=== PATIENT | female | born 1960 | race Caucasian/White ===

== ENCOUNTER 2016-11-28 09:20 | Inpatient (IN) | payer OTHER, MEDICARE ==
[~2016-11-28] VITALS: Ht 152.4 cm; Wt 81.4 kg
[2016-11-28] VITALS (20 sets, daily range): BP systolic 88–131; BP diastolic 44–75; PULSE 73–104; RESP 16–26; Ht 152.4 cm; Wt 81.4 kg
[~2016-11-28 09:20] MED LIST: EPHEDrine SULFATE 50 MG/5 ML SYG ONE
[2016-11-28] MEDS ORDERED: ROSU5TAB5 PO (10:02)
[2016-11-28] MEDS ORDERED: METF-405 PO (10:02)
[2016-11-28] MEDS ORDERED: LOSA50TA6 PO (10:03)
[2016-11-28] MEDS ORDERED: DESV50TA4 PO (10:03)
[2016-11-28] MEDS ORDERED: FELO5TAB35 PO (10:03)
[2016-11-28] MEDS ORDERED: LACTATED RINGER'S 1,000 ML IV* SCH (10:30)
[2016-11-28] MEDS ORDERED: CEFAZOLIN 2 GM/50 ML (PMX) 50 ML IVPB ONE (10:30)
[2016-11-28] MEDS ORDERED: THROMBIN 5000 UNIT VIAL ONE (11:38)
[2016-11-28] MEDS ORDERED: CA CHLORIDE 10% 10 ML SYRINGE ONE (11:38)
[2016-11-28] MEDS ORDERED: SURGIFOAM POWDER 1 GM KIT ONE (11:38)
[2016-11-28] MEDS ORDERED: POLYMYXIN/BACITRACIN 1L IRRIG ONE (11:38)
[2016-11-28] MEDS ORDERED: BUPIVACAINE 0.25%/EPI (SDV) 30 ML INJ ONE (11:38)
--- NOTE | 2016-11-28 11:48 | HPN ---
Date/Time of Note Date/Time of Note DATE: 11/28/16 TIME: 11:47 Interval H&P Admission Note Pt. seen H&P reviewed: No system changes SHYANNE CASETLLANOS PA-C Nov 28, 2016 11:48
[2016-11-28] MEDS ORDERED: AL HYDROX/MG HYDROX/SIMETH 30 ML CUP PO PRN (12:00)
[2016-11-28] MEDS ORDERED: HYDROmorphONE 1 MG/ML SYG IV PRN (12:00)
[2016-11-28] MEDS ORDERED: DIPHENHYDRAMINE 50 MG INJ IV PRN ×2 (12:00→13:30)
[2016-11-28] MEDS ORDERED: ZOLPIDEM 5 MG TAB PO PRN (12:00)
[2016-11-28] MEDS ORDERED: ACETAMINOPHEN 325 MG TAB PO PRN (12:00)
[2016-11-28] MEDS ORDERED: CARISOPRODOL 350 MG TAB PO PRN (12:00)
[2016-11-28] MEDS ORDERED: ONDANSETRON 4 MG INJ IV PRN ×2 (12:00→13:30)
[2016-11-28] MEDS: CEFAZOLIN 1 GM/50 ML (PMX) 50 ML IVPB SCH ×2 (12:00→19:58)
[2016-11-28] MEDS ORDERED: NALOXONE (0.4 MG/ML) INJ IV PRN (12:00)
[2016-11-28] MEDS ORDERED: BISACODYL 10 MG SUPP PR PRN (12:00)
[2016-11-28] MEDS ORDERED: CEPASTAT LOZENGE MT PRN (12:00)
[2016-11-28] MEDS ORDERED: HYDROmorphONE 0.2 MG/ML PCA IV SCH (12:00)
[2016-11-28] MEDS ORDERED: FENTAnyl 50 MCG/ML VIAL ONE ×2 (12:15→13:04)
[2016-11-28] MEDS ORDERED: ROCURONIUM 50 MG INJ ONE (12:15)
[2016-11-28] MEDS ORDERED: SUCCINYLCHOLINE CHLORIDE 100 MG/5 ML SYG IV ONE (12:15)
[2016-11-28] MEDS ORDERED: MIDAZOLAM 1 MG/ML 2 ML INJ ONE (12:15)
[2016-11-28] MEDS ORDERED: PROPOFOL 20 ML ONE ×2 (12:15→13:00)
[2016-11-28] MEDS ORDERED: LIDOCAINE 2% (SDV) 5 ML INJ ONE (12:15)
[2016-11-28] MEDS ORDERED: CEFAZOLIN 1 GM INJ ONE (12:36)
[2016-11-28] MEDS ORDERED: ONDANSETRON 4 MG INJ ONE (12:37)
[2016-11-28] MEDS ORDERED: FAMOTIDINE 20 MG INJ ONE (12:37)
[2016-11-28] MEDS ORDERED: DEXAMETHASONE 4 MG/ML 1 ML INJ ONE (12:37)
[2016-11-28] MEDS ORDERED: NEOSTIGMINE 3 MG/3 ML SYRINGE ONE (13:05)
[2016-11-28] MEDS ORDERED: GLYCOPYRROLATE 1 MG INJ ONE (13:05)
[2016-11-28] MEDS ORDERED: HYDROmorphONE 2 MG/ML SYG ONE (13:05)
[2016-11-28] MEDS ORDERED: FENTAnyl 50 MCG/ML VIAL IV PRN (13:30)
[2016-11-28] MEDS ORDERED: PROCHLORPERAZINE 10 MG INJ IV PRN (13:30)
[2016-11-28] MEDS ORDERED: HYDROmorphONE (0.2 MG/ML) 10ML SYG IV PRN (13:30)
[2016-11-28] MEDS ORDERED: MEPERIDINE 25 MG INJ IV PRN (13:30)
--- NOTE | 2016-11-28 13:48 | RADRPT ---
PROCEDURE: XR Lumbar Spine one view. CLINICAL INDICATION: Low back pain. Intraoperative. TECHNIQUE: Prone portable cross-table lateral. COMPARISON: Prior study done earlier the same day. FINDINGS: For the purposes of this report, the last apparent true disc level is considered to be L5-S1. Based on this, the posterior surgical instrument is present overlying the L5-S1 level. IMPRESSION: 1. Intraoperative imaging as described above. RPTAT: QQ .Jarrett Carcamo MD, MD Date Time Electronically viewed and signed by .Jarrett Carcamo MD, on 11/28/2016 13:48 .R/
--- NOTE | 2016-11-28 13:48 | RADRPT ---
PROCEDURE: XR Lumbar Spine one view. CLINICAL INDICATION: Low back pain. Intraoperative. TECHNIQUE: Prone portable cross-table lateral. COMPARISON: No prior studies are available for comparison. FINDINGS: For the purposes of this report, the last apparent true disc level is considered to be L5-S1. Based on this, the posterior needle markers are present at upper L5 and lower S1 levels. IMPRESSION: 1. Intraoperative imaging as described above. RPTAT: QQ .Jarrett Carcamo MD, MD Date Time Electronically viewed and signed by .Jarrett Carcamo MD, on 11/28/2016 13:48 .R/
--- NOTE | 2016-11-28 13:54 | OPPN ---
Date/Time of Note Date/Time of Note DATE: 11/28/16 TIME: 13:53 Operative Report Free Text/Dictation s/p right L5-S1 microdiscectomy Preoperative Diagnosis right L5-S1 HNP Postoperative Diagnosis right L5-S1 HNP Operation/Procedure Performed right L5-S1 microdiscectomy Provider: JAIRO HOLT MD acute care nursing assistant: SHYANNE CASTELLANOS PA-C Anesthesia: general Estimated blood loss: 10 - 50 ml's Specimens L5-S1 disc Grafts/Implants none Complications: None SHYANNE CASTELLANOS PA-C Nov 28, 2016 13:54
[2016-11-28] MEDS: 1/2 NS + KCL 20 MEQ 1,000 ML IV SCH (15:45)
[2016-11-28] MEDS: LOSARTAN 50 MG TAB PO SCH (17:30)
[2016-11-28] MEDS: [UNRECOGNIZED DRUG - REMARK] XX SCH (18:00)
[2016-11-28] MEDS: FELODIPINE (ER) 5 MG TAB PO SCH (18:17)
[2016-11-28] MEDS: metFORMIN 500 MG TAB PO SCH (18:20)
[2016-11-28] MEDS: INSULIN ASPART [NOVOLOG] 3 ML PEN SC SCH (18:30)
[2016-11-28] MEDS ORDERED: ATORVASTATIN 20 MG TAB PO SCH (21:00)
[2016-11-28] MEDS: DOCUSATE SODIUM 100 MG CAP PO SCH (21:03)
[2016-11-29] MEDS: 1/2 NS + KCL 20 MEQ 1,000 ML IV SCH ×3 (01:46→18:00)
[2016-11-29] MEDS: [UNRECOGNIZED DRUG - REMARK] XX SCH ×2 (01:50→10:00)
[2016-11-29] MEDS: CEFAZOLIN 1 GM/50 ML (PMX) 50 ML IVPB SCH (03:58)
[2016-11-29] MEDS ORDERED: GLUCOSE GEL 15 GRAM TUBE PO PRN ×2 (07:00)
[2016-11-29] MEDS ORDERED: GLUCAGON 1 MG INJ IM PRN (07:00)
[2016-11-29] MEDS ORDERED: DEXTROSE 50% 50 ML SYRINGE IV PRN ×2 (07:00)
[2016-11-29] MEDS ORDERED: GLUCOSE GEL 15 GRAM TUBE BUCCAL PRN (07:00)
[2016-11-29] MEDS: INSULIN ASPART [NOVOLOG] 3 ML PEN SC SCH ×3 (07:20→17:25)
[2016-11-29] MEDS: metFORMIN 500 MG TAB PO SCH ×2 (08:29→17:49)
[2016-11-29] MEDS: DOCUSATE SODIUM 100 MG CAP PO SCH (08:30)
[2016-11-29] MEDS: LOSARTAN 50 MG TAB PO SCH (08:31)
[2016-11-29] MEDS: FELODIPINE (ER) 5 MG TAB PO SCH (08:31)
[2016-11-29 08:39] VITALS: BP 123/68; RESP 20
--- NOTE | 2016-11-29 08:42 | CONS ---
Date/Time of Note Date/Time of Note DATE: 11/29/16 TIME: 08:40 Assessment/Plan Assessment/Plan Additional Assessment/Plan 1. Stable post op lumbar laminectomy. 2. Hx DM, sugars are acceptable 3. This am labs are pending Consultation Date/Type/Reason Admit Date/Time Nov 28, 2016 at 09:20 Initial Consult Date Detailed Summary Respiratory: No cough, No shortness of breath Cardiovascular: No chest pain Gastrointestinal: no complaints Genitourinary: no complaints Musculoskeletal: back pain (mild) Exam/Review of Systems Vital Signs Vitals Vital Signs Date Time Temp Pulse Resp B/P Pulse Ox O2 Delivery O2 Flow Rate FiO2 11/29/16 06:07 20 11/28/16 21:29 Nasal Cannula 2.0 11/28/16 19:02 98.0 101 118/74 97 Intake and Output 11/28/16 11/28/16 11/29/16 15:00 23:00 07:00 Intake Total 1600 ml 165 ml 1635 ml Output Total 10 ml 350 ml Balance 1590 ml -185 ml 1635 ml Exam Neck: No jvd Respiratory: clear to auscultation Cardiovascular: regular rate and rhythm Gastrointestinal: soft Extremities: No edema (and no calf tend) Results Results 24 hrs Laboratory Tests Test 11/28/16 10:26 11/28/16 14:10 11/28/16 18:10 11/29/16 08:10 Bedside Glucose 144 164 189 142 Medications Medications Current Medications Potassium Chloride/Sodium Chloride (1/2 NS + KCl 20 Meq) 1,000 ml @ 100 mls/hr Q10H IV Last administered on 11/29/16t 01:46; Admin Dose 100 MLS/HR; Start 03/07 at 12:00 Acetaminophen/ Hydrocodone Bitart ([place] (10/325)) 1 tab Q4H PRN PO PAIN LEVEL 1-5; Start 11/29/16 at 10:00 Acetaminophen/ Hydrocodone Bitart ([place] (10/325)) 2 tab Q4H PRN PO PAIN LEVEL 6-10; Start 11/29/16 at 10:00 Hydromorphone HCl (Dilaudid) 0.2 mg Q1H PRN IV BREAKTHROUGH PAIN; Start at 12:00 Ondansetron HCl (Zofran Inj) 4 mg Q6H PRN IV NAUSEA AND/OR VOMITING; Start 03/07 at 12:00 Bisacodyl (Dulcolax Supp) 10 mg DAILY PRN IA CONSTIPATION; Start 11/28/16 at 12 :00 Docusate Sodium (Colace) 100 mg BID PO Last administered on 11/29/16 08:30; Admin Dose 100 MG; Start 11/28/16 at 21:00 Al Hydrox/Mg Hydrox/Simethicone (Mag-Al Plus) 15 ml Q6H PRN PO CONSTIPATION/ DYSPEPSIA; Start 11/28/16 at 12:00 Acetaminophen (Tylenol Tab) 650 mg Q4H PRN PO CORDERO OR TEMP GREATER THAN 101.3F; Start 11/28/16 at 12:00 Carisoprodol (Soma) 350 mg TID PRN PO MUSCLE SPASMS; Start 11/28/16 at 12:00 Phenol (Cepastat Lozenge) 1 lozenge PRN PRN MT SORE THROAT; Start 11/28/16 at 12:00 Diphenhydramine HCl (Benadryl) 25 mg Q6H PRN IV ITCHING; Start 11/28/16 at 12: 00 Naloxone HCl (Narcan) 0.2 mg Q2M PRN IV RR 8 BREATHS/MIN OR LESS; Start at 12:00 Hydromorphone HCl (Dilaudid GEOLOGICAL SCOUT) GEOLOGICAL SCOUT to be started in PACU Q4PCA IV Last administered on 11/28/16 14:33; Admin Dose 6 MG; Start 11/28/16 at 12:00; Status Future Hold Miscellaneous Information 1. Hold GEOLOGICAL SCOUT at 1,000... GEOLOGICAL SCOUT IV ; Start 11/28/16 at 12: 00 Acetaminophen/ Hydrocodone Bitart ([place] (10325)) 2 tab ONCE@0930 PO ; Start at 09:30; Stop 11/29/16 at 12:00 Felodipine (Plendil) 5 mg DAILY PO Last administered on 11/29/16 08:31; Admin Dose 5 MG; Start 11/28/16 at 18:30 Losartan Potassium (Cozaar) 50 mg DAILY PO Last administered on 11/29/16 08:31 ; Admin Dose 50 MG; Start 11/28/16 at 17:30 Miscellaneous Information 50 mg DAILY PO ; Start 11/29/16 at 09:00; Status UNV Atorvastatin Calcium (Lipitor) 20 mg QHS PO Last administered on 11/28/16t 21: 03; Admin Dose 20 MG; Start 11/28/16 at 21:00 Miscellaneous Information (*Order Clarification Bulletin) MEDICATION REQUIRES CLARIFICATION:IA... Q8H XX ; Start 11/28/16 at 18:00 Miscellaneous Information 1 ea NOTE XX ; Start 11/29/16 at 07:00 Glucose (Glutose) 15 gm Q15M PRN PO DECREASED GLUCOSE; Start 11/29/16 at 07:00 Glucose (Glutose) 22.5 gm Q15M PRN PO DECREASED GLUCOSE; Start 11/29/16 at 07: 00 Dextrose (D50w Syringe) 25 ml Q15M PRN IV DECREASED GLUCOSE; Start 11/29/16 at 07:00 Dextrose (D50w Syringe) 50 ml Q15M PRN IV DECREASED GLUCOSE; Start 11/29/16 at 07:00 Glucagon (Glucagen) 1 mg Q15M PRN IM DECREASED GLUCOSE; Start 11/29/16 at 07:00 Glucose (Glutose) 15 gm Q15M PRN BUCCAL DECREASED GLUCOSE; Start 11/29/16 at 07 :00 QUINTON HERRERA MD Nov 29, 2016 08:41
[2016-11-29] MEDS ORDERED: NON-FORMULARY/PATIENT OWN MED (Desvenlafaxine Succinate (Pristiq) 50 MG) PO SCH (09:00)
[2016-11-29] MEDS ORDERED: HYDROCODONE/APAP (10/325) TAB PO SCH (09:30)
[2016-11-29] MEDS ORDERED: HYDROCODONE/APAP (10/325) TAB PO PRN ×2 (10:00)
[2016-11-29 10:50] LABS: ADD SCAN DIFF NO
[2016-11-29 10:53] LABS: BASOPHIL # 0.1 10^3/ul (0.0-0.1); BASOPHILS % 0.4 % (0.0-2.0); EOSINOPHILS % 0.3 % (0.0-7.0); HEMOGLOBIN 12.3 g/dl (12.0-16.0); LYMPHOCYTES # 2.9 10^3/ul (0.8-2.9); LYMPHOCYTES % 18.3 % (15.0-51.0); MEAN CORPUSCULAR HEMOGLOBIN 29.1 pg (29.0-33.0); MEAN CORPUSCULAR HGB CONC 33.2 g/dl (32.0-37.0); MEAN CORPUSCULAR VOLUME 87.5 fl (82.0-101.0); MEAN PLATELET VOLUME 9.8 fl (7.4-10.4); MONOCYTE # 1.5 10^3/ul (0.3-0.9); MONOCYTES % 9.4 % (0.0-11.0); NEUTROPHIL # 11.3 10^3/ul (1.6-7.5); NEUTROPHILS % 71.1 % (39.0-77.0); PLATELET COUNT 339 10^3/UL (140-415); RED BLOOD COUNT 4.23 10^6/ul (4.20-5.40); RED CELL DISTRIBUTION WIDTH 12.9 % (11.5-14.5); WHITE BLOOD COUNT 15.8 10^3/ul (4.8-10.8)
[2016-11-29 11:11] LABS: CALCIUM 9.4 mg/dl (8.4-10.2); CREATININE 0.66 mg/dl (0.44-1.00); POTASSIUM 4.2 mmol/L (3.5-5.1)
[2016-11-29] MEDS ORDERED: ONDANSETRON 4 MG INJ IV PRN (14:00)
--- NOTE | 2016-11-29 14:09 | PDOCDIS ---
Discharge Instructions DIAGNOSIS Discharge Diagnosis s/p lumbar microdiscectomy CONDITION Patient Condition: Good HOME CARE INSTRUCTIONS: Diet Instructions: Regular ACTIVITY: Bathing Restrictions: ShowerActivity Restrictions Comment: no bending, lifting > 10 pounds, twisting / ok to shower starting 11/30 FOLLOW UP/APPOINTMENTS Follow-up Plan f/u arranged SHYANNE CASTELLANOS PA-C Nov 29, 2016 14:09
--- NOTE | 2016-12-06 09:20 | CONS ---
DATE OF ADMISSION: 11/28/2016 DATE OF CONSULTATION: Thank you very much for allowing me to evaluate this 56-year-old female who just underwent lumbar back surgery. HISTORICAL EVENTS: As you well know, this patient has had continued low back pain that did not respond to conservative therapy and elected to proceed with surgical intervention. Postoperatively, on the orthopedic floor she notes a slight sore throat. Denies cough, wheezing, substernal chest pain, shortness of breath, wheezing, nausea, vomiting or abdominal pain. PAST MEDICAL HISTORY: Includes: 1. Diaphragmatic hernia. 2. History of Diverticulosis. 3. History of fatty liver. 4. History of obstructive sleep apnea. 5. History of depression. 6. Diabetes mellitus. 7. Esophageal reflux. 8. Hyperlipidemia. 9. Overweight status. 10. Septoplasty. 11. Lithotripsy. 12. History of breast reduction. SOCIAL HISTORY: . Does not smoke. FAMILY HISTORY: Positive for asthma and coronary disease. ALLERGIES: NONE. MEDICATION: Metformin 500 mg b.i.d., losartan 50 mg per day, felodipine 5 mg per day, Pristiq 5 mg per day, ranitidine 150 mg b.i.d., Crestor 5 mg per day. PHYSICAL EXAMINATION: GENERAL: [place] female, no acute distress. VITAL SIGNS: BP 122/80, pulse 70, respirations 20. She was afebrile. HEENT: Eyes: Extraocular muscles were full. Nose, mouth and throat were normal. NECK: Supple. There was no jugular venous distension, thyroid enlargement, adenopathy. Carotids 2+, no bruits. LUNGS: Clear. HEART: Rhythm regular. No murmur. No 3rd or 4th sound. ABDOMEN: Nontender. Liver and spleen were not palpable. No masses or tenderness were noted. EXTREMITIES: No edema. Calves nontender. Pulses 2+. NEUROLOGIC: No lateralizing motor weakness. IMPRESSION: 1. Stable postop lumbar laminectomy. 2. History of diabetes. We will resume her oral agent and monitor sugars before meals and use short-acting insulin for coverage. 3. Hypertension. To resume antihypertensive therapy. 4. We will evaluate her daily for signs and symptoms of thromboembolic disease. Dictated By: Jorge Carreon MD /clinton/carloz /Document#: [id number]
--- NOTE | 2016-12-10 09:21 | DS ---
DATE OF ADMISSION: 11/28/2016 DATE OF DISCHARGE: 11/29/2016 ADMITTING DIAGNOSIS: Disc herniation. DISCHARGE DIAGNOSIS: Disc herniation. PROCEDURE: Patient was taken to the operating room on 11/28. Underwent lumbar discectomy. HOSPITAL COURSE: Patient was admitted to the [facility] after going the above procedure. Her postoperative course was uncomplicated. By postop day 1 she was deemed stable for discharge. FOLLOWUP: arranged with undersigned Dictated By: Phi Norman MD /clinton/mayur /Document#: [id number] GISELA
--- NOTE | 2016-12-10 11:18 | OPR ---
DATE OF OPERATION: 11/28/2016 PREOPERATIVE DIAGNOSES: 1. Right L5-S1 disk herniation with radiculopathy. 2. Body mass index 35.1. POSTOPERATIVE DIAGNOSES: 1. Right L5-S1 disk herniation with radiculopathy. 2. Body mass index 35.1. OPERATION PERFORMED: 1. Right L5-S1 hemilaminotomy, partial medial facetectomy and foraminotomy. 2. Right L5-S1 microdissectomy. 3. Use of operative microscope. 4. Use of C-arm flash with interpretation without radiologist present. 5. Epidural injection via catheter. 6. Intraoperative neuromonitoring (1 hour and 15 minutes). SURGEON: Phi Norman MD. BRINE PURIFIER: STEPH Finnegan. NEED FOR CLOUD ADMINISTRATOR: A surgical supplies sterilizer was required in order to retract the neurovascular elements. This could not be done with the soil field technician. ESTIMATED BLOOD LOSS: Less than 30 cc. DRAINS: None. SPECIMENS: L5-S1 disk. COMPLICATIONS: None. ANESTHESIOLOGIST: Dr. Roque. ANESTHESIA: General. INDICATIONS FOR PROCEDURE: This is a 56-year-old female with right lumbosacral radiculopathy in the setting of a disk herniation at L5-S1. She has failed nonoperative measures; therefore, I recommended proceeding with the above-mentioned surgery. Preoperatively, we discussed risks, benefits and alternatives. She understood and wished to proceed. OPERATIVE PROCEDURE: The patient was identified preoperatively in the holding area. Given Ancef antibiotics, taken to the operating room where she was successfully placed under general anesthesia. Neuromonitoring devices placed. Sequential compression devices were applied. Neuromonitoring was utilized during the procedure for 1 hour and 15 minutes to include SSEP, MEP and EMG. This was performed by [facility]. Start time was 12:40 p.m. Closure time was 1:55 p.m. The patient was placed on the operating room table in prone position on a Suman frame. All bony prominences were well padded. The back was prepped and draped in usual sterile fashion. Spinal needles were placed and a lateral localizing film was obtained to confirm the correct levels. Once this confirmed, I injected the paraspinal musculature with 0.25 percent Marcaine and epinephrine. An incision was then made over the L5-S1 level. The incision was taken down to the dorsal fascia, which was incised with a Bovie cautery. Given the patient's morbid obesity, extended instruments had to be utilized adding complexity to the surgery and 30 minutes extra time. I incised down to the dorsal fascia, which was incised with Bovie cautery. I then subperiosteally dissected the right L5 lamina. Ritika retractor was placed. Kerrisons placed in the left side of the L5 lamina and a repeat lateral film was obtained to confirm the correct level. Once this was confirmed, microscope was brought and a right-sided hemilaminotomy, partial medial facetectomy and foraminotomy was performed. ligamentum flavum were sharply dissected. My content assistant then retracted neural elements medially. Annulotomy was made, followed by discectomy. Patient had very poor disk material and quite a bit of time was spent removing all the free fragments. Once this was done, all nerve signals returned to normal. The wound and disk space were then irrigated. Hemostasis was achieved with a bipolar cautery and surgifoam. The wound was dry, and therefore, elected not to place a drain. I passed an epidural catheter through which I injected 100 mcg of fentanyl. Anesthesiologist leroy peripheral blood, which was spund down using the Harimata device. I then injected the PPP thrombin over the dura for hemostatic purposes. The retractors were removed and I closed the deep fascia with #1 Vicryl stitch. Microscope was taken off the field. 2-0 Vicryl closure was then performed. Dermabond and dry dressings then applied. Patient was then awakened from anesthesia and taken to recovery room in stable condition. Lap, sponge and instrument counts correct x2. There were no apparent complications during the procedure. The patient will be admitted to the orthopedic [facility] for routine postoperative care to improve pain control, neuro checks, antibiotics and physical therapy. Dictated By: Phi Norman MD /clinton/carloz /Document#: [id number] GISELA
== END 2016-11-29 18:00 | disposition home or self-care (01) | DRG 520 ==
LOC: REC 09:20 → MS1 15:03
PROVIDERS: ADMIT Specialist; ATTEND Specialist
PROC: 4A11X4G Monitoring of Peripheral Nervous Electrical Activity, Intraoperative, External Approach (ICD-10-PCS; 2016-11-28)
PROC: 0SB40ZZ Excision of Lumbosacral Disc, Open Approach (ICD-10-PCS; principal; 2016-11-28 12:00)
DX: M51.17 Intervertebral disc disorders with radiculopathy, lumbosacral region (principal); I11.9 Hypertensive heart disease without heart failure; E66.01 Morbid (severe) obesity due to excess calories; K76.0 Fatty (change of) liver, not elsewhere classified; I10 Essential (primary) hypertension; E11.9 Type 2 diabetes mellitus without complications; E78.00 Pure hypercholesterolemia, unspecified; F32.9 Major depressive disorder, single episode, unspecified; G47.33 Obstructive sleep apnea (adult) (pediatric); E78.2 Mixed hyperlipidemia; Z68.35 Body mass index [BMI] 35.0-35.9, adult; Z79.84 Long term (current) use of oral hypoglycemic drugs
CPT/HCPCS: 72020; 80048; 82962; 84703; 85025; 86999; 97116; 97161; 97530; J0690; J1100; J1170; J1815; J2250; J2405; J2710; J3010; J3480; J7999